=== PATIENT | female | born 1985 | race Caucasian/White ===

== ENCOUNTER 2023-12-27 13:31 | Outpatient (CLI) | payer MEDICAID, SELFPAY ==
--- NOTE | 2023-12-27 13:37 | USR_ITS ---
PROCEDURE INFORMATION: Exam: US After First Trimester, Transabdominal Exam date and time: 12/27/2023 1:50 PM Age: 38 years old Clinical indication: Screening exam; Routine US, uterus; Additional info: Supervision of other normal , second trimester TECHNIQUE: Imaging protocol: Real-time transabdominal obstetrical ultrasound of the maternal pelvis and a second or third trimester with image documentation. COMPARISON: No relevant prior studies available. FINDINGS: Gestation: Single live intrauterine in breech presentation heart rate: 157 bpm. 157 bpm presentation and position: Placenta: Placenta is posterior no previa Amniotic fluid (Qualitative): Amniotic fluid is normal for gestational age. Amniotic fluid index: ELPIDIO is 10.8 cm. Amniotic fluid index 10.8 cm ANATOMY: midline falx: Normal cerebellum: Normal lateral ventricles: Normal cisterna magna: Normal choroid plexus: Normal face: Upper lip is visualized heart four-chamber view, heart size and position: Normal heart right ventricular outflow tract: Normal heart left ventricular outflow tract: Normal kidneys: Normal stomach: Normal urinary bladder: Normal spine: Partly obscured by position. The visualized portions are normal Umbilical cord and insertion: Normal three-vessel cord and insertion upper limbs: Normal lower limbs: Normal external genitalia: Female BIOMETRY: Gestational age (AUA): 19 week 1 day Estimated due date (AUA): 05/21/2024 Estimated weight: EFW by AC, BPD, FL, HC, Hadlock 1985. 303 g plus or minus 45 g. Estimated weight percentile: less than 3% Biparietal diameter (BPD): . 4.61 cm 20 weeks 0 day 11.8 percentile Head circumference (HC): 17.28 cm 19 weeks 6 day 5th percentile Abdominal circumference (AC): 14.77 cm 20 weeks 0 day 15.9 percentile Femur length (FL): 2.93 cm 19 weeks 0 day less than 3 percentile HC/AC: 1.17. (Normal range: 1.09 - 1.26) FL/HC: 16.96. (Normal range: 16.2 - 18.51) FL/BPD: 63.56 FL/AC: 19.84 MATERNAL: Uterus: Unremarkable. Cervix: Cervix is 5 cm in length and closed. Right ovary/adnexa: Obscured by lack of adequate acoustic window. Left ovary/adnexa: Obscured by lack of adequate acoustic window. Intraperitoneal space: No intraperitoneal free fluid. US/US OB >= 14 weeks fetus [id number] IMPRESSION: Single live intrauterine of approximately 19 weeks 1 day gestational age. growth measurements with estimated weight of less than 3 percentile may indicate intrauterine growth retardation.
== END 2023-12-27 13:32 | disposition home or self-care (01) ==
LOC: RAD 13:33
PROVIDERS: PCP Family Medicine; Visit Provider Family Medicine
DX: Z34.82 Encounter for supervision of other normal pregnancy, second trimester (principal)
CPT/HCPCS: 76805

== ENCOUNTER 2024-02-27 08:43 | Outpatient (CLI) | payer MEDICAID, SELFPAY ==
--- NOTE | 2024-02-27 08:45 | US_ITS ---
WS: [id number] LIMITED OBSTETRICAL ULTRASOUND HISTORY: ENCOUNTER FOR SUPERVISION OF OTHER NORMAL COMPARISON: 12/27/2023 Presentation: Presentation cannot be determined on the imaging submitted as labeled. Cervix: Closed and normal length. Placenta: Very limited evaluation of the placenta. Placenta appears to be posterior. Grade: 1 HEART: FHR of 144 BPM. measurements: BPD = 7.3 cm = 29w1d; 73% HC = 26.9 cm = 29w2d; 61% AC = 25.0 cm = 29w1d; 77% FL = 5.5 cm = 28w6d; 60% Normal amniotic fluid. EFW: 1333.6 g; 78.9 % AGA by ultrasound: 29w1d ESTELA by ultrasound: 05/13/2024 US[place] [id number] IMPRESSION: 1. Single intrauterine gestation of 29w1d with an ESTELA of 05/13/2024. Appropria te growth of the fetus since 12/27/2023. 2. Normal amniotic fluid.
== END 2024-02-27 08:44 | disposition home or self-care (01) ==
LOC: RAD 08:43
PROVIDERS: PCP Family Medicine; Visit Provider Family Medicine
DX: Z34.82 Encounter for supervision of other normal pregnancy, second trimester (principal)
CPT/HCPCS: 76816

== ENCOUNTER 2024-03-19 13:27 | Outpatient (CLI) | payer MEDICAID, SELFPAY ==
--- NOTE | 2024-03-19 13:28 | US_ITS ---
WS: [id number] LIMITED OBSTETRICAL ULTRASOUND HISTORY: ENCOUNTER FOR OTHER SCREENING COMPARISON: 02/27/2024, 12/27/2023 Presentation: Cephalic Cervix: Closed and normal length. Placenta: Posterior, no previa. Grade: 1 HEART: FHR of 157 BPM. measurements: BPD = 7.7 cm = 31w0d; 71% HC = 29.5 cm = 32w4d; 84% AC = 28.3 cm = 32w2d; 95% FL = 6.1 cm = 31w6d; 84% Normal amniotic fluid. EFW: 1902.2 g; 96 % AGA by ultrasound: 32w0d ESTELA by ultrasound: 05/14/2024 US/[place] [id number] IMPRESSION: 1. Single intrauterine gestation of 32w0d with an ESTELA of 05/14/2024. 2. Estimated weight at the 96 percentile for age. 3. Appropriate growth of the fetus since the ultrasound of 12/27/2023. 4. Biometry percentiles are trending high suggesting continued evaluation for large for gestational age. The abdominal circumference is at the 95th percentil e. BPD is at the 71st percentile.
== END 2024-03-19 13:28 | disposition home or self-care (01) ==
LOC: RAD 13:27
PROVIDERS: PCP Family Medicine; Visit Provider Family Medicine
DX: Z36.2 Encounter for other antenatal screening follow-up (principal); Z3A.32 32 weeks gestation of pregnancy
CPT/HCPCS: 76816

== ENCOUNTER 2024-04-06 16:30 | Outpatient (CLI) | payer MEDICAID, SELFPAY ==
--- NOTE | 2024-04-06 16:36 | USR_ITS ---
PROCEDURE INFORMATION: Exam: US , Follow up Exam date and time: 04/06/2024 4:39 PM Age: 38 years old Clinical indication: Screening exam; Routine US, uterus; Additional info: Large for ga LABS AND CLINICAL REPORTS: Gestational age (Established): 33 w 4 d Estimated due date (Established): 05/21/2024 TECHNIQUE: Imaging protocol: Transabdominal ultrasound of the uterus, real time with image documentation. Follow-up (eg, re-evaluation of size by measuring standard growth parameters and amniotic fluid volume, re-evaluation of organ system(s) suspected or confirmed to be abnormal on a previous scan). COMPARISON: [place] [id number] 03/19/2024 1:43 PM FINDINGS: Gestation: Single living intrauterine fetus. heart rate: 144 bpm. Regular rhythm. presentation and position: Cephalic presentation. Placenta: Posterior grade 1, no previa. BIOMETRY: Estimated weight: 2157.58 g (previously 1902 g on prior study dated 03/19/2024). EFW by AC, BPD, FL, HC, Hadlock 1985 Estimated weight percentile: 33.0% percentile (Hadlock, previously 95.9% percentile). Biparietal diameter (BPD): 8.41 cm. EGA (BPD) is 33 w 6 d. 54.5 % percentile Head circumference (HC): 30.64 cm. EGA (HC) is 34 w 1 d. 27.1 % percentile Abdominal circumference (AC): 28.9 cm. EGA (AC) is 32 w 6 d. 32.6 % percentile Femur length (FL): 6.48 cm. EGA (FL) is 33 w 3 d. 35.3 % percentile HC/AC: 1.06. (Normal range: 0.95 - 1.11) FL/HC: 21.15. (Normal range: 19.61 - 21.67) FL/BPD: 77.05. (Normal range: 71 - 87) FL/AC: 22.42. (Normal range: 20 - 24) MATERNAL: Cervix: Cervical length measures 4.7 cm. Closed. US/[place] [id number] IMPRESSION: Single living intrauterine fetus. Significant interval decrease in estimated weight percentile. Clinical correlation is recommended.
== END 2024-04-06 16:31 | disposition home or self-care (01) ==
LOC: RAD 16:31
PROVIDERS: PCP Family Medicine; Visit Provider Family Medicine
DX: O36.63X0 Maternal care for excessive fetal growth, third trimester, not applicable or unspecified (principal); Z3A.33 33 weeks gestation of pregnancy
CPT/HCPCS: 76816

== ENCOUNTER 2024-05-04 12:13 | Outpatient (CLI) | payer MEDICAID, SELFPAY ==
--- NOTE | 2024-05-04 12:21 | USR_ITS ---
PROCEDURE INFORMATION: Exam: US , Follow up Exam date and time: 05/04/2024 12:25 PM Age: 38 years old Clinical indication: Screening exam; Routine US, uterus; Additional info: Measuring large for ga LABS AND CLINICAL REPORTS: Gestational age (Established): 37 w 4 d Estimated due date (Established): 05/21/2024 TECHNIQUE: Imaging protocol: Transabdominal ultrasound of the uterus, real time with image documentation. Follow-up (eg, re-evaluation of size by measuring standard growth parameters and amniotic fluid volume, re-evaluation of organ system(s) suspected or confirmed to be abnormal on a previous scan). COMPARISON: [place] [id number] 04/06/2024 4:39 PM FINDINGS: Gestation: Single intrauterine gestation in the cephalic presentation. heart rate: 155 bpm Placenta: Fundal placenta unremarkable. Amniotic fluid index: ELPIDIO is 14.24 cm. BIOMETRY: Estimated due date (AUA): Average ultrasound age 37 weeks 1 day with ESTELA 05/24/2024. Estimated weight: 3138 g (6 lb 15 oz) EFW by AC, BPD, FL, HC, Hadlock 1985 49% percentile. Biparietal diameter (BPD): 9.14 cm. EGA (BPD) is 37 w 1 d. 56.7 % percentile Head circumference (HC): 32.84 cm. EGA (HC) is 37 w 2 d. 21.8 % percentile Abdominal circumference (AC): 33.51 cm. EGA (AC) is 37 w 3 d. 62 % percentile Femur length (FL): 7.15 cm. EGA (FL) is 36 w 4 d. 27 % percentile HC/AC: 0.98. (Normal range: 0.92 - 1.05) FL/HC: 21.77. (Normal range: 20.81 - 22.61) FL/BPD: 78.23. (Normal range: 71 - 87) FL/AC: 21.34. (Normal range: 20 - 24) MATERNAL: Cervix: Cervical length measures 4.9 cm. Appears long and closed. US/[place] [id number] IMPRESSION: 1. Single intrauterine fetus with FHR 155 bpm, cephalic presentation. 2. Fundal placenta, unremarkable. Cervix appears long and closed. 3. ELPIDIO 14.24 cm. 4. EFW 3138 g (6 lb 15 oz), 49% percentile with today's exam.
== END 2024-05-04 12:14 | disposition home or self-care (01) ==
LOC: RAD 12:16
PROVIDERS: PCP Family Medicine; Visit Provider Family Medicine
DX: O36.63X0 Maternal care for excessive fetal growth, third trimester, not applicable or unspecified (principal); Z3A.37 37 weeks gestation of pregnancy
CPT/HCPCS: 76816

== ENCOUNTER 2024-05-22 11:42 | Outpatient (CLI) | payer MEDICAID, SELFPAY ==
[2024-05-22 11:50] VITALS: BP 118/81; PULSE 69
[2024-05-22 11:57] VITALS: BMI 34.8
[2024-05-22 12:11] VITALS: BP 116/77; PULSE 66
[2024-05-22 12:20] VITALS: BP 116/77; PULSE 66; RESP 16
== END 2024-05-22 12:20 | disposition home or self-care (01) ==
LOC: OPOB 11:42 → OBGYN 11:43
PROVIDERS: PCP Family Medicine; Visit Provider Family Medicine
DX: O48.0 Post-term pregnancy (principal); Z3A.00 Weeks of gestation of pregnancy not specified
CPT/HCPCS: 59025; 99211

== ENCOUNTER 2024-05-25 00:16 | Inpatient (IN) | payer MEDICAID, SELFPAY ==
[2024-05-24 23:47] VITALS: BP 126/79; PULSE 71
[2024-05-25] VITALS (36 sets, daily range): BP systolic 107–191; BP diastolic 56–122; PULSE 64–133; RESP 16–18; TEMP 36.8–37.4; O2SAT 90–100; BMI 35.0
[2024-05-25 00:39] LABS: Basophils % 0.3 %; Eosinophils # 0.5 10^3/uL (0.0-0.8); Hematocrit 32.4 % (36-47); Lymphocytes # 1.7 10^3/uL (0.8-4.8); Lymphocytes % 14.3 %; Mean Corpuscular HGB Conc 34.6 g/dL (30-55); Mean Corpuscular Hemoglobin 31.5 pg (27-33); Mean Platelet Volume 11.7 fL (7.4-10.4); Monocytes # 0.6 10^3/uL (0.2-0.9); Neutrophils # 9.01 10^3/uL (1.8-7.7); Nucleated Red Blood Cells % 0 %; Platelet Count 152 10^3/cmm (157-399); Red Blood Count 3.56 10^6/uL (3.85-5.65); Red Cell Distribution Width 12.8 % (12.1-15.1); White Blood Count 11.85 10^3/uL (3.29-11.43)
[2024-05-25] MEDS: sodium chloride 0.9% 1,000 ML 999 ML IV ×2 (01:45→02:50)
[2024-05-25] MEDS: ROPivacaine syringe 100 MG/50 ML SYRINGE 10 MG EPIDURAL (03:09)
--- NOTE | 2024-05-25 03:10 | ANES.PREANE2 ---
Pre-Anesthetic Assessment Height/Weight: Height 1.63 m Weight 92.533 kg Temp Pulse Resp BP Pulse Ox O2 Del Method 99.4 F 75 18 134/77 99 Room Air 05/25/24 01:22 05/25/24 03:07 05/25/24 01:22 05/25/24 03:07 05/25/24 03:07 05/25/24 01:22 Preop Diagnosis: intrauterine labor epidural Familial anesthetic complications: none Was Beta Don taken within 24 hours: N/A Was Clonidine taken within 24 hours: N/A Last intake: water at 0230 Social No alcohol and No tobacco Exam alert, oriented x 3 and clear to auscultation bilaterally Airway Mallampati: Class II Dentition: full Pulmonary None reported CV/HEM None reported None reported Hepatic None reported GI None reported Metabolic None reported Musc/skel None reported Neuropsych None reported Anesthetic Plan ASA status: 2 Anesthesia: Anesthesia Evaluation and Regional (specify below) Risk of > 500 ml blood loss (7ml/kg in children): Yes, adequate IV access and fluids planned Medications/Allergies Home Medications ?Medication ?Instructions ?Recorded ?Confirmed ?Last Taken ?Type vits no.124-ferrous fum 1 tab PO DAILY 05/22/24 05/25/24 05/24/24 History 27 mg iron-folic acid 800 mcg tablet ( Vitamin) Allergies Allergy/AdvReac Type Severity Reaction Status Date / Time Sulfa (Sulfonamide Allergy ALGY-Hives Verified 05/25/24 00:26 Antibiotics) Current Medications Generic Name Dose Route Start Last Admin Trade Name Freq PRN Reason Stop Dose Admin Sodium Chloride 1,000 mls @ 999 mls/hr 05/25/24 01:50 05/25/24 02:50 Sodium Chloride 0.9% IV 999 mls/hr .Q1H1M PRN Administration See label comments PFSH Anesthesia Female Reproductive History : 3 Data Anesthesia 05/25/24 00:05 Short CBC 05/25/24 Range/Units 00:05 WBC 11.85 H (3.29-11.43) 10^3/uL Hgb 11.20 L (11.27-16.99) g/dL Hct 32.4 L (36-47) % MCV 91.0 (85-98) fl Plt Count 152 L (157-399) 10^3/cmm Neut % (Auto) 76.0 % Neut # (Auto) 9.01 H (1.8-7.7) 10^3/uL Cardiac Studies: No Data to Display Anesthesia Procedures Epidural Time Out Performed: Yes Consents Signed: Procedure Consent Consent: requested by attending/covering physician, from patient, risks and benefits reviewed and patient agrees to proceed Lumbar Level: L3-L4 Epidural position: sitting Epidural procedure: sterile prep of area, 1% lidocaine to numb the area, 18 g needle, negative for paresthesia passed, neg for paresthesia, test dose given, 1.5% xylocaine 1:200k epi, 0.2% Ropivacaine bolus ml (5), placed PCEA, no systemic response, sterile dressing applied, L.U.D. no apparent complications and 0.2% Ropiavacaine @ mls/hr (10) Additional Comments: ROSI 5, catheter easily threaded to 12. VS monitored throughout and remained stable. Pt educated on [employer] and reporting adequate analgesia.
--- NOTE | 2024-05-25 03:55 | P.HP_ITS ---
Providers/Chief Complaint 2 Admitting Physician: Ana Richardson DO Primary Care Provider: Ana Richardson DO Chief Complaint: r/o SROM HPI [employer]ER History of Present Illness Sarah Maria is a 38 year old female G3, P1 at 40 weeks 4 days based on 19 week US presenting for SROM and contractions. PMHx includes childhood asthma. course complicated by Rh- status and received RhoGAM. Complains of leakage of fluid since about 10 PM. Reports contractions off and on for the last couple days, denies vaginal bleeding. Good movement. care was good and starting in first trimester. Present Details : 3 Para: 1 Labs Blood type OB HPI: A (-) negative Rubella: Non-Immune RPR: Negative GBS: Negative HBsAG: Negative Other Lab Information: HIV negative Antibody screen negative x 2 GC/Chlamydia negative UCx wnl Hep C ab negative Initial H/H 12.9/37.7 1hr GTT passed Genetic testing- [id number] wnl Pap smear NILM 12/06/23 3rd trimester H/H 11.8/35.2 Review of Systems 2 Const: Denies: fever(s) or chills Card: Denies: chest pain or palpitations Resp: Denies: dyspnea or productive cough Medications/Allergies Home Medications ?Medication ?Instructions ?Recorded ?Confirmed ?Last Taken ?Type vits no.124-ferrous fum 1 tab PO DAILY 05/25/24 05/24/24 History 27 mg iron-folic acid 800 mcg tablet ( Vitamin) Allergies Allergy/AdvReac Type Severity Reaction Status Date / Time Sulfa (Sulfonamide Allergy ALGY-Hives Verified 05/25/24 00:26 Antibiotics) History History History 2 3 Term 2 0 Miscarriages/Ectopic 1 Living Children 2 Vitals/I&O/Wt Last Vital Signs Temp 99.4 F 05/25/24 01:22 Pulse 81 05/25/24 03:37 Resp 18 05/25/24 01:22 BP 118/77 05/25/24 03:37 Pulse Ox 99 05/25/24 03:37 O2 Del Method Room Air 05/25/24 01:22 05/24/24 05/24/24 05/25/24 14:59 22:59 06:59 Intake Total 1000 / 1000 Balance 1000 / 1000 Weight last 48 hrs Weight 204 lb Physical Exam 2 Const: COMMON NORMALS: no acute distress (Although pain with contractions. ), healthy appearing and alert OTHER: Pain with contractions Resp: COMMON NORMALS: normal respiratory effort, No retractions and No use of accessory muscles Cardio: COMMON NORMALS: regular rate and regular rhythm Extremity: NARRATIVE EXTREMITY EXAM: Trace pitting LE edema Psych: COMMON NORMALS: mental status grossly normal and Normal thought process present Data 05/25/24 18:54 Results Labs OB ([facility]): 2 Blood Type A Negative 05/25/24 Antibody Screen Negative 05/25/24 Hct 31.4 % (36-47) L 05/25/24 Hgb 10.40 g/dL (11.27-16.99) L 05/25/24 Rho(D) Type Rh negative 05/25/24 Plt Count 143 10^3/cmm (157-399) L 05/25/24 A&P Assessment and plan (1) SROM (spontaneous rupture of membranes): (2) Active labor: Plan 38-year-old G2, P1 at 40 weeks 4 days admitted for labor with SROM Expectant management Intermittent external monitoring as long as category 1 heart tones Fentanyl protocol and may have epidural when desired Anticipate vaginal delivery. PDMP PDMP Reviewed: Not Reviewed Attestations 2 Medical Necessity Statement*: Sarah Astorga Crow's hospital stay will require greater than 2 midnights for labor and delivery and care. Coding Level of Care Code Acute Code for Chg Fwd Diagnoses SROM (spontaneous rupture of membranes) Active labor
[2024-05-25] MEDS: oxytocin 30 UNIT/500 ML BAG 600 UNIT IV (06:31)
--- NOTE | 2024-05-25 06:42 | PM.DELIVERY ---
Delivery Note: Date of delivery: May 25, 2024 Pre-delivery diagnoses: Spontaneous labor Term RH negative Post-delivery diagnoses: Term delivery of viable female Procedure: Spontaneous vaginal delivery Delivering Physician: Ana Richardson DO Estimated blood loss (mL): 100 Pre-Delivery Course: Admitted with SROM at home at approximately 2200 on 05/24 with clear fluid. Admitted with spontaneous contractions and initial SVE of 4/70/-3. She progressed appropriately and obtained epidural for anesthesia after which SVE was 9/80/-3. She then progressed appropriately to complete. Overall heart tones category 1 with occasional intermittent variables. Delivery: Patient progressed to complete. Patient placed in lithotomy position. Patient pushed with adequate effort. Head delivered in OA position, no nuchal cord was present. Shoulders and rest of body delivered without difficulty with adequate epidural anesthesia. Noted to have meconium stained fluid at delivery. Mouth and nares bulb suctioned. Cord clamped and cut after 1 minute delay. Infant placed on maternal abdomen. Placenta spontaneously delivered and noted to be intact. Pitocin started. Fundus was noted to be firm. The vagina and cervix were inspected and periurethral abrasions noted to be hemostatic were noted. Fundus was again noted to be firm. Female born at 0628 with 8/10, measurements pending at this time with skin to skin Placenta noted to be intact with centrally inserted umbilical cord, and three-vessel cord. Complications: Maternal none Infant none History History History 2 Term 2 0 Miscarriages/Ectopic 0 Living Children 2 A&P Assessment and plan (1) Spontaneous vaginal delivery: (2) RhD negative: PDMP PDMP Reviewed: Not Reviewed Coding Level of Care Code Acute Code for Chg Fwd Diagnoses Spontaneous vaginal delivery O80 RhD negative Z67.91
[2024-05-25] MEDS: ibuprofen 800 mg tablet PO ×2 (15:33→21:44)
[2024-05-25 19:02] LABS: Hematocrit 31.4 % (36-47); Mean Corpuscular HGB Conc 33.1 g/dL (30-55); Mean Corpuscular Hemoglobin 30.6 pg (27-33); Mean Corpuscular Volume 92.4 fl (85-98); Mean Platelet Volume 11.9 fL (7.4-10.4); Platelet Count 143 10^3/cmm (157-399); White Blood Count 15.17 10^3/uL (3.29-11.43)
[2024-05-25] MEDS: docusate sodium 100 mg Capsule PO (21:44)
[2024-05-26 04:00] VITALS: BP 115/75; PULSE 75; RESP 16; TEMP 36.8; O2SAT 98
--- NOTE | 2024-05-26 08:28 | P.DS_ITS ---
Discharge Providers SPONGE CLIPPER Date of Admission: 05/25/24 00:16 Date of Discharge: 05/26/24 Attending Provider at Admission: Ana Richardson DO Attending Provider at Discharge: Ana Richardson DO Primary Care Provider: Ana Richardson DO Diagnoses at Discharge Discharge Diagnosis (1) SROM (spontaneous rupture of membranes): Status: Acute (2) Active labor: Status: Acute Reason for Visit Reason for Visit: r/o SROM Hospital Course Hospital Course Pre-Delivery Course: Admitted with SROM at home at approximately 2200 on 05/24 with clear fluid. Admitted with spontaneous contractions and initial SVE of 4/70/-3. She progressed appropriately and obtained epidural for anesthesia after which SVE was 9/80/-3. She then progressed appropriately to complete. Overall heart tones category 1 with occasional intermittent variables. Delivery: Patient progressed to complete. Patient placed in lithotomy position. Patient pushed with adequate effort. Head delivered in OA position, no nuchal cord was present. Shoulders and rest of body delivered without difficulty with adequate epidural anesthesia. Noted to have meconium stained fluid at delivery. Mouth and nares bulb suctioned. Cord clamped and cut after 1 minute delay. Infant placed on maternal abdomen. Placenta spontaneously delivered and noted to be intact. Pitocin started. Fundus was noted to be firm. The vagina and cervix were inspected and periurethral abrasions noted to be hemostatic were noted. Fundus was again noted to be firm. Female born at 0628 with 8/10, 7lb 10oz Placenta noted to be intact with centrally inserted umbilical cord, and three- vessel cord. Complications: Maternal none Infant none EBL 100mL course: Patient underwent on 05/25/2024. course was uncomplicated. Following delivery patient ambulated well, tolerated a normal diet without nausea or vomiting. Pain was well-controlled on PO medications, breast-feeding well, no leg/calf pain, no calf/leg swelling, normal urination, passing gas and normal bowel movements. Vaginal bleeding thin lochia and decreasing. labs significant for hemoglobin of 10.4 down from 11.2 on admission. She will restart her vitamin at home. Follow-up planned for 2 and 6 weeks . Warning signs for endometritis, pre-eclampsia, DVT/PE, mastitis were reviewed, discussed additional warning signs including increased vaginal bleeding, worsening abdominal pain. Pelvic rest and activity precautions reviewed as well. She is discharged on 05/26/2024 in stable condition. Information Peripartum Data: Infant Delivery Method: Vaginal Physical Exam Const: COMMON NORMALS: no acute distress, healthy appearing, alert and well nourished Resp: COMMON NORMALS: normal respiratory effort, No retractions, No use of accessory muscles and clear to auscultation bilaterally AUSCULTATION: clear to auscultation bilaterally Cardio: COMMON NORMALS: regular rate, regular rhythm, S1 normal heart sound present, S2 normal heart sound present and No murmurs present (Cardio) RATE: regular rate RHYTHM: regular rhythm HEART SOUNDS: S1 normal heart sound present and S2 normal heart sound present : OTHER: Uterine fundus firm and at the umbilicus Extremity: NARRATIVE EXTREMITY EXAM: Trace pitting LE edema Neuro: SENSORIUM/ORIENTATION: Yes alert Psych: COMMON NORMALS: mental status grossly normal and Normal thought process present THOUGHT PROCESS: Normal thought process present Urinary Catheter Management: [place]: Cath Placed During This Visit: yes, but has since been removed by the nurse Reason for Continuing Indwelling Catheter: Decision to DC Catheter Urinary Catheter Date of Insertion: 05/25/24 Urinary Catheter Time of Insertion: 03:45 Date Urinary Catheter Removed: 05/25/24 Time Urinary Catheter Discontinued: 05:40 History History History 3 Term 2 0 Miscarriages/Ectopic 1 Living Children 2 Discharge Data Studies Completed and Pending Pending at discharge Category Date Time Status Retype for Patiets ABO/Rh Routine Lab 05/25/24 07:39 Ordered Laboratory Results WBC 15.17 10^3/uL (3.29-11.43) H 05/25/24 18:54 RBC 3.40 10^6/uL (3.85-5.65) L 05/25/24 18:54 Hgb 10.40 g/dL (11.27-16.99) L 05/25/24 18:54 Hct 31.4 % (36-47) L 05/25/24 18:54 MCV 92.4 fl (85-98) 05/25/24 18:54 MCH 30.6 pg (27-33) 05/25/24 18:54 MCHC 33.1 g/dL (30-55) 05/25/24 18:54 RDW 13.0 % (12.1-15.1) 05/25/24 18:54 Plt Count 143 10^3/cmm (157-399) L 05/25/24 18:54 MPV 11.9 fL (7.4-10.4) H 05/25/24 18:54 Neut % (Auto) 76.0 % 05/25/24 00:05 Lymph % (Auto) 14.3 % 05/25/24 00:05 [place] % (Auto) 5.0 % 05/25/24 00:05 Eos % (Auto) 4.0 % 05/25/24 00:05 Baso % (Auto) 0.3 % 05/25/24 00:05 Neut # (Auto) 9.01 10^3/uL (1.8-7.7) H 05/25/24 00:05 Lymph # (Auto) 1.7 10^3/uL (0.8-4.8) 05/25/24 00:05 [place] # (Auto) 0.6 10^3/uL (0.2-0.9) 05/25/24 00:05 Eos # (Auto) 0.5 10^3/uL (0.0-0.8) 05/25/24 00:05 Baso # (Auto) 0.0 10^3/uL (0.0-0.1) 05/25/24 00:05 Nucleated RBC % (auto) 0 % 05/25/24 00:05 Nucleated RBCs # 0.0 /100WBC 05/25/24 00:05 Blood Type A Negative 05/25/24 00:05 Rho(D) Type Rh negative 05/25/24 00:05 Antibody Screen Negative 05/25/24 00:05 Vitals Last Vital Signs Temp 98.3 F 05/26/24 04:00 Pulse 75 05/26/24 04:00 Resp 16 05/26/24 04:00 BP 115/75 05/26/24 04:00 Pulse Ox 98 05/26/24 04:00 O2 Del Method Room Air 05/26/24 04:00 Results Labs OB ([facility]): Obstetrics US 05/04/24 Blood Type A Negative 05/25/24 Antibody Screen Negative 05/25/24 Hct 31.4 % (36-47) L 05/25/24 Hgb 10.40 g/dL (11.27-16.99) L 05/25/24 Rho(D) Type Rh negative 05/25/24 Plt Count 143 10^3/cmm (157-399) L 05/25/24 Discharge Plan Discharge Patient Disposition: Home Condition: Stable Prescriptions: New ibuprofen 800 mg Tablet 800 mg PO TID Qty: 90 0RF docusate sodium 100 mg Capsule 100 mg PO BID Qty: 60 0RF Continued Vitamin 27 mg iron- 800 mcg Tablet 1 tab PO DAILY Discharge Orders: Discharge Order (Routine); Ordered 05/26/24 Ordered By: Ana Richardson Discharge Diet: Usual diet Discharge Activity: Increase activity as tolerated Patient Instructions: OB Discharge Report, OB Food/Drug Interaction Guide, OB Care at Home, Opioid Safety, OB Home Care, OB Vaginal Deliveries - [facility] Activity Restrictions/Additional Instructions: Pelvic rest for 6 weeks. Discharge Attestations SPONGE CLIPPER Time Spent in Discharge Care*: less than 30 min Coding Level of Care Code Acute Code for Chg Fwd Diagnoses SROM (spontaneous rupture of membranes) Active labor
[2024-05-26] MEDS: ibuprofen 800 mg tablet PO (08:42)
[2024-05-26 08:47] VITALS: BP 119/73; PULSE 71; RESP 17; TEMP 36.7; O2SAT 98
[2024-05-26 09:48] VITALS: BP 119/73; PULSE 71; RESP 17; TEMP 36.7; O2SAT 98
== END 2024-05-26 09:48 | disposition home or self-care (01) | DRG 807 ==
LOC: OPOB 00:17 → OBGYN 00:17
PROVIDERS: Admitting Provider Family Medicine; PCP Family Medicine; Visit Provider Family Medicine
DX: O36.0930 Maternal care for other rhesus isoimmunization, third trimester, not applicable or unspecified (principal); Z37.0 Single live birth; O77.0 Labor and delivery complicated by meconium in amniotic fluid; Z3A.40 40 weeks gestation of pregnancy; J45.909 Unspecified asthma, uncomplicated; O75.89 Other specified complications of labor and delivery
CPT/HCPCS: 36415; 51702; 59025; 59409; 83986; 85025; 85027; 86850; 86900; 99211; J2590; J2795; J7030; J9999

== ENCOUNTER → 2024-08-25 08:31 | Outpatient (BNVA) | payer MEDICAID, SELFPAY | PROVIDERS: PCP Family Medicine; Visit Provider Nurse Practitioner Women's Health | DX: Z30.430 Encounter for insertion of intrauterine contraceptive device (principal) | CPT/HCPCS: 81025 ==